=== PATIENT | female | born 1995 | race American Indian/Alaskan Native ===

== ENCOUNTER 2018-12-08 23:31 | Emergency (ER) | payer MEDICAID ==
[2018-12-08 23:32] VITALS: BMI 22.6
[2018-12-09 00:31] VITALS: BP 112/63; PULSE 84; RESP 18; TEMP 98.6; O2SAT 100
--- NOTE | 2018-12-09 00:42 | ED PDOC ---
HPI: Skin/Bite Injury Time Seen by Provider: 12/09/18 00:10 Chief Complaint (Nursing): Abnormal Skin Integrity Chief Complaint (Provider): bump to lip History Per: Patient History/Exam Limitations: no limitations Onset/Duration Of Symptoms: Hrs Pain Scale Rating Of: 0 Additional History Per: Patient Additional Complaint(s): 23 y/o female with no significant past medical hx pesents to the ed with left upper lip bump this am. Patient states she has never had this before and wants it to go away as she is graduating tomorrow. Patient denies being ill in the last few days, denies fever.Patient also states she popped it this am and it might of made it worse. Patient states she has been under a lot of stress. Past Medical History Reviewed: Historical Data, Nursing Documentation, Vital Signs Vital Signs: Last Vital Signs Temp 98.6 F 12/09/18 00:10 Pulse 84 12/09/18 00:10 Resp 18 12/09/18 00:10 BP 112/63 12/09/18 00:10 Pulse Ox 100 12/09/18 00:10 - Medical History PMH: No Chronic Diseases, Depression - Surgical History Surgical History: No Surg Hx - Family History Family History: States: Unknown Family Hx - Social History Alcohol: None Drugs: Denies - Immunization History Hx Tetanus Toxoid Vaccination: No - Home Medications Home Medications: Ambulatory Orders Medication Instructions Recorded Nitrofurantoin Macrocrystals 100 mg PO BID #14 cap 03/08/13 [Macrobid] Ondansetron ODT [Zofran ODT] 4 mg PO Q8 PRN #30 odt 03/08/13 Docusate Sodium [Dulcolax Stool 100 mg PO DAILY PRN #10 capsule 06/12/16 Softener] Polyethylene Glycol 3350 [Miralax] 17 gm PO DAILY #1 bottle 06/12/16 Acyclovir 5% [Zovirax] 5 % TP Q4H #1 tube 12/09/18 - Allergies Allergies/Adverse Reactions: Allergies Allergy/AdvReac Type Severity Reaction Status Date / Time polen Allergy CONGESTION Uncoded 12/29/17 14:16 Review of Systems ROS Statement: Except As Marked, All Systems Reviewed And Found Negative Constitutional: Negative for: Fever, Chills, Sweats, Weakness Skin: Positive for: Lesions (left upper lip) Physical Exam - Reviewed Nursing Documentation Reviewed: Yes Vital Signs Reviewed: Yes - Physical Exam Appears: Positive for: Well, Non-toxic, No Acute Distress Head Exam: Positive for: ATRAUMATIC, NORMAL INSPECTION, NORMOCEPHALIC Skin: Positive for: Normal Color, Warm, Rash (herpetic lesion to left upper lip. ) Eye Exam: Positive for: EOMI, Normal appearance, PERRL ENT: Positive for: Normal ENT Inspection Neck: Positive for: Normal, Painless ROM Cardiovascular/Chest: Positive for: Regular Rate, Rhythm Respiratory: Positive for: CNT, Normal Breath Sounds Gastrointestinal/Abdominal: Positive for: Normal Exam, Soft Back: Positive for: Normal Inspection Extremity: Positive for: Normal ROM Neurological/Psych: Positive for: Awake, Alert, Normal Tone - ECG O2 Sat by Pulse Oximetry: 100 Medical Decision Making Medical Decision Making: IMPRESSION: COLD SORE PATIENT EDUCATED SYMPTOMS. PT ENCOURAGED NOT TO SHARE UTENSILS , CUPS OR ANYTHING THAT COMES INTACT WITH LIPS VIRUS S CONTIAGOUS. RX GIVEN FOR ZOVIRAX. PATIENT EDUCATED MED WILL NOT CURE LESION BUT IT WILL SHORTEN LENGTH OF TIME IT WILL BE PRESENT. Disposition - Clinical Impression Clinical Impression: Cold sore - Disposition Disposition: Routine/Home Disposition Time: 00:20 Condition: GOOD Prescriptions: Acyclovir 5% [Zovirax] 5 % TP Q4H #1 tube Instructions: Cold Sores (Oral Herpes) (DC) - POA Present On Arrival: None
== END 2018-12-09 01:03 | disposition home or self-care (01) ==
LOC: H.ER 23:31
DX: B00.1 Herpesviral vesicular dermatitis (principal)